=== PATIENT | female | born 1980 | race Caucasian/White ===

== ENCOUNTER 2017-12-10 04:30 | Emergency (ER) | payer OTHER ==
[2017-12-10] MEDS ORDERED: ACETAMINOPHEN 325 MG TABLET (FP) PO ONE (05:51)
[2017-12-10] MEDS ORDERED: DEXAMETHASONE LIQUID 0.5 MG/5 ML 240 ML BULK BOTTLE PO ONE (06:06)
--- NOTE | 2017-12-10 06:06 | PDOC ---
History of Present Illness - General Chief Complaint: Sore Throat Stated Complaint: 3 MONTHS ,THROAT,HEAD EAR PAIN Time Seen by Provider: 12/10/17 05:36 History Source: Patient Exam Limitations: Language Barrier - History of Present Illness Initial Comments: 12/10/17 06:00 Patient is a 37F 3 months and no significant medical history here today complaining of three days of sore throat. She's also complaining of associated ear pain and headache. Patient endorses difficultly swallowing and tenderness in anterior neck. Denies difficulty handling secretions. Endorses associated nausea, denies vomiting. Denies fevers. Patient says that she has not tried taking any medication because she is . Past History - Past Medical History Allergies/Adverse Reactions: Allergies Allergy/AdvReac Type Severity Reaction Status Date / Time No Known Allergies Allergy Verified 12/10/17 05:50 Home Medications: Ambulatory Orders NK [No Known Home Medication] 12/10/17 COPD: No - Suicide/Smoking/Psychosocial Hx Smoking History: Unknown if ever smoked Have you smoked in the past 12 months: No Information on smoking cessation initiated: No Hx Alcohol Use: No Drug/Substance Use Hx: No Substance Use Type: None Review of Systems - Review of Systems Comments:: 12/10/17 06:10 GENERAL/CONSTITUTIONAL: No fever or chills. No weakness. HEAD, EYES, EARS, NOSE AND THROAT: No change in vision. Positive for ear pain and sore throat. CARDIOVASCULAR: No chest pain or shortness of breath RESPIRATORY: Positive for cough. Negative for wheezing, or hemoptysis. GASTROINTESTINAL: No nausea, vomiting, diarrhea or constipation. GENITOURINARY: No dysuria, frequency, or change in urination. MUSCULOSKELETAL: No joint or muscle swelling or pain. Positive for anterior neck pain. SKIN: No rash NEUROLOGIC: No headache, vertigo, loss of consciousness, or change in strength/ sensation. ENDOCRINE: No increased thirst. No abnormal weight change ALLERGIC/IMMUNOLOGIC: No hives or skin allergy. *Physical Exam - Vital Signs Last Vital Signs Temp Pulse Resp BP Pulse Ox 98.4 F 103 H 18 125/81 100 12/10/17 05:36 12/10/17 05:36 12/10/17 05:36 12/10/17 05:36 12/10/17 05:36 - Physical Exam Comments: 12/10/17 06:12 GENERAL: Awake, alert, and fully oriented, in no acute distress THROAT: Handling secretions, erthematous papules on posterior pharnyx, swollen tonsil, midline uvula. HEAD: No signs of trauma, normocephalic, atraumatic EYES: PERRLA, EOMI, sclera anicteric, conjunctiva clear ENT: Auricles normal inspection, hearing grossly normal, nares patent, oropharynx clear without exudates. Moist mucosa LUNGS: No distress, speaks full sentences, clear to auscultation bilaterally HEART: Regular rate and rhythm, normal S1 and S2, no murmurs, rubs or gallops, peripheral pulses normal and equal bilaterally. ABDOMEN: Soft, nontender, normoactive bowel sounds. No guarding, no rebound. EXTREMITIES: Normal inspection, Normal range of motion, no edema. No clubbing or cyanosis. NEUROLOGICAL: Cranial nerves II through XII grossly intact. Normal speech, normal gait, no focal sensorimotor deficits SKIN: Warm, Dry, normal turgor, no rashes or lesions noted. Medical Decision Making - Medical Decision Making 12/10/17 06:15 Patient is 37F here today with sore throat, ear pain, headache. Vital signs stable. Exam shows pharyngitis. Will evaluate with flu and strep tests, as patient would be treated for both because she is . Will give tylenol and decadron for symptomatic relief. *DC/Admit/Observation/Transfer Diagnosis at time of Disposition: Pharyngitis - Discharge Dispostion Disposition: HOME Condition at time of disposition: Good Decision to Admit order: No - Referrals Referrals: Leander Montes MD [Primary Care Provider] - - Patient Instructions Printed Discharge Instructions: DI for Viral Pharyngitis Additional Instructions: Please return if you have any new, worsening or concerning symptoms. Please take tylenol to help control the pain in your throat. Please call Tuesday to make an appointment with your primary care physician. Print Language: ICELANDIC - Post Discharge Activity
[2017-12-10] MEDS ORDERED: DEXAMETHASONE SOD PHOSPHATE 10 MG/1 ML VIAL IM ONE (06:30)
[2017-12-10] MEDS ORDERED: DEXAMETHASONE SOD PHOSPHATE 10 MG/1 ML VIAL ONE (06:33)
[2017-12-10] MEDS ORDERED: ACETAMINOPHEN 325 MG TABLET (FP) ONE (06:33)
--- NOTE | 2017-12-10 07:02 | PDOC ---
*Physical Exam - Vital Signs Last Vital Signs Temp Pulse Resp BP Pulse Ox 98.4 F 103 H 18 125/81 100 12/10/17 05:36 12/10/17 05:36 12/10/17 05:36 12/10/17 05:36 12/10/17 05:36 ED Treatment Course - ADDITIONAL ORDERS Additional order review: 12/10/17 05:58 Group A Strep Rapid Antigen - Final Throat - Medications Given in the ED: ED Medications Discontinued Medications Generic Name Dose Route Start Last Admin Trade Name Gaston PRN Reason Stop Dose Admin Acetaminophen 650 mg 12/10/17 05:51 12/10/17 06:36 Tylenol - PO 12/10/17 05:52 650 mg ONCE ONE Administration Dexamethasone Sodium Phosphate 10 mg 12/10/17 06:30 12/10/17 06:36 Decadron Injection - IM 12/10/17 06:31 10 mg ONCE ONE Administration Medical Decision Making - Medical Decision Making 12/10/17 07:02 Care taken over from Dr. Tello. 12/10/17 07:36 Influenza / Strep swabs negative. Discharging to home. *DC/Admit/Observation/Transfer Diagnosis at time of Disposition: Pharyngitis Qualifiers: Pharyngitis/tonsillitis etiology: unspecified etiology Qualified Code(s): J02.9 - Acute pharyngitis, unspecified - Discharge Dispostion Disposition: HOME Condition at time of disposition: Good - Referrals Referrals: Leander Montes MD [Primary Care Provider] - - Patient Instructions Printed Discharge Instructions: DI for Viral Pharyngitis Additional Instructions: Please return if you have any new, worsening or concerning symptoms. Please take tylenol to help control the pain in your throat. Please call Tuesday to make an appointment with your primary care physician. Print Language: TURKISH - Post Discharge Activity
--- NOTE | 2017-12-10 07:07 | PDOC ---
Attending Attestation - Resident Resident Name: Ben Tello - ED Attending Attestation I have performed the following: I have examined & evaluated the patient, The case was reviewed & discussed with the resident, I agree w/resident's findings & plan - HPI HPI: 12/10/17 07:08 Pt comes with sore throat. - Physicial Exam PE: 12/10/17 07:08 Agree with resident exam. - Medical Decision Making 12/10/17 07:08 Exam normal. Pt will be checked for strep throat and for flu. Home if normal. Follow with PMD.
[2017-12-10 07:33] VITALS: BP 125/81; PULSE 103; TEMP 98.4; BMI 23.2
== END 2017-12-10 08:12 | disposition home or self-care (01) ==
LOC: JER 04:30
PROC: 3E0233Z Introduction of Anti-inflammatory into Muscle, Percutaneous Approach (ICD-10-PCS; principal; 2017-12-10)
DX: O26.891 Other specified pregnancy related conditions, first trimester (principal); J02.9 Acute pharyngitis, unspecified; B97.89 Other viral agents as the cause of diseases classified elsewhere; Z3A.12 12 weeks gestation of pregnancy
CPT/HCPCS: 87070; 87430; 87804; 96372; 99281-25; J1100